=== PATIENT | male | born 1985 | race Two or more races ===

== ENCOUNTER 2020-10-05 00:44 | Emergency (ER) | payer OTHER ==
[~2020-10-05] VITALS: Ht 170.2 cm; Wt 124.0 kg
[2020-10-05] MEDS ORDERED: MORPHINE SULFATE 4 MG/ML, 1ML ONE (01:09)
[2020-10-05] MEDS ORDERED: ONDANSETRON 2MG/ML, 2ML ONE (01:09)
[2020-10-05] MEDS ORDERED: MAALOX/HYOSCYAMINE/LIDOCAINE 45 ML BTL ONE (01:27)
[2020-10-05] MEDS ORDERED: MAALOX/HYOSCYAMINE/LIDOCAINE 45 ML BTL PO ONE (01:30)
[2020-10-05] MEDS ORDERED: MORPHINE SULFATE 4 MG/ML, 1ML IVPush PRN (01:30)
[2020-10-05] MEDS ORDERED: SODIUM CHLORIDE FLUSH 10ML SYR IVF ONE (01:30)
[2020-10-05] MEDS ORDERED: SODIUM CHLORIDE 0.9% 1,000ML IVBOLUS ONE (01:30)
[2020-10-05] MEDS ORDERED: ONDANSETRON 2MG/ML, 2ML IVPush ONE (01:30)
--- NOTE | 2020-10-05 01:30 | NUR ---
PT HERE FOR ABDOMENAL PAIN AND NAUSEA X 1 WEEK. PT ADMITS TO DRINKING "A LOT" OF ALCOHOL EVERYDAY. PT DENIES MEDICAL HISTORY OR ALLEGIES. PIV PLACED, LABS SENT, AND PT MEDICATED PER EMAR. PT UNABLE TO URINATE AT THIS TIME. WILL ATTEMPT AGAIN, CALL LIGHT WITHIN REACH
[2020-10-05 01:38] LABS: BASOPHILS % (AUTO) 1 % (0-1); EOSINOPHILS % (AUTO) 3 % (1-7); LYMPHOCYTES % (AUTO) 41 % (22-44); MEAN CORPUSCULAR HEMOGLOBIN 31.6 pg (27.5-34.5); MEAN CORPUSCULAR HGB CONC 34.3 g/dL (33.2-36.2); MEAN PLATELET VOLUME 7.9 fL (7.4-10.4); MONOCYTES % (AUTO) 5 % (2-9); NEUTROPHILS % (AUTO) 50 % (42-75); PLATELET COUNT 277 x10^3/uL (130-400); RED BLOOD COUNT 4.74 x10^6/uL (4.38-5.82); RED CELL DISTRIBUTION WIDTH 13.1 % (9.4-14.8)
[2020-10-05 01:40] LABS: MD NO
[2020-10-05 01:49] LABS: ALANINE AMINOTRANSFERASE 77 U/L (12-78); ALBUMIN 3.6 g/dL (3.4-5.0); ANION GAP 5 mmol/L (5-15); CALCIUM 8.6 mg/dL (8.5-10.1); CHLORIDE 108 mmol/L (98-107); CREATININE 1.05 mg/dL (0.7-1.3)
[2020-10-05 01:51] LABS: ALKALINE PHOSPHATASE 91 U/L (45-117); BILIRUBIN,TOTAL 0.5 mg/dL (0.2-1.0); TOTAL PROTEIN 7.4 g/dL (6.4-8.2)
[2020-10-05 01:56] VITALS: BP 157/91
--- NOTE | 2020-10-05 02:16 | NUR ---
UA NOT NEEDED PER DR. STEVENS
--- NOTE | 2020-10-05 02:20 | NUR ---
Patient given discharge instructions and they have confirmed that they understand the instructions. Patient ambulatory with steady gait. PT'S FRIEND TO DRIVE HOME
== END 2020-10-05 02:30 | disposition home or self-care (01) ==
LOC: ED 02:04
DX: K29.20 Alcoholic gastritis without bleeding (principal); F10.10 Alcohol abuse, uncomplicated; Y90.0 Blood alcohol level of less than 20 mg/100 ml
CPT/HCPCS: 36415; 80053; 83690; 85025; 96361; 96374; 96375; 99284; J2270; J2405; J7030

== ENCOUNTER 2021-01-08 21:33 | Emergency (ER) | payer SELFPAY ==
[~2021-01-08] VITALS: Ht 172.7 cm; Wt 128.0 kg
[2021-01-08 21:40] VITALS: BP 178/109
--- NOTE | 2021-01-08 22:40 | NUR ---
HEAD PORTER: NIL X 1 WHEN CALLED FOR ROOM.
--- NOTE | 2021-01-08 22:57 | NUR ---
ELEVATOR TROUBLESHOOTER: NIL X 2 WHEN CALLED FOR ROOM.
--- NOTE | 2021-01-08 23:32 | NUR ---
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 NIL X 3 WHEN CALLED FOR ROOM.
== END 2021-01-08 23:34 | disposition left against medical advice (07) ==
LOC: ED 22:00
DX: R51.9 Headache, unspecified (principal); Z53.21 Procedure and treatment not carried out due to patient leaving prior to being seen by health care provider